=== PATIENT | female | born 1990 | race Caucasian/White ===

== ENCOUNTER 2017-02-12 15:04 | Emergency (ER) | payer OTHER ==
--- NOTE | 2017-02-12 15:13 | ED.PDOC ---
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 Timing/Duration: 4-6 hours, intermittent, resolved prior to arrival Severity: moderate Improving Factors: nothing Worsening Factors: nothing Associated Symptoms: other - see hpi Allergies/Adverse Reactions: Allergies Latex Allergy (Verified 09/28/14 12:40) Penicillins Allergy (Verified 09/28/14 12:40) Review of Systems - Review of Systems Constitutional: States: other - malaise/fatigue EENTM: States: no symptoms reported Respiratory: States: no symptoms reported Cardiology: States: see HPI Gastrointestinal/Abdominal: States: no symptoms reported Genitourinary: States: no symptoms reported Musculoskeletal: States: no symptoms reported Skin: States: no symptoms reported Neurological: States: see HPI Past Medical History (General) - Patient Medical History Hx Seizures: No Hx Stroke: No Hx Dementia: No Hx Asthma: Yes - No problems within last 2 years Hx Cardiac Disorders: No Hx Congestive Heart Failure: No Hx Pacemaker: No Hx Hypertension: No Hx Thyroid Disease: No Hx Diabetes: No Hx Gastroesophageal Reflux: No Hx Renal Disease: No Hx Cancer: No Hx of HIV: No Hx Hepatitis C: No Hx MRSA: No Hx Other PMH: Yes - thyroid Surgical History: other - umbilical hernia repair - Vaccination History Hx Influenza Vaccination: No Hx Pneumococcal Vaccination: No - Social History Hx Tobacco Use: No Hx Chewing Tobacco Use: No Hx Alcohol Use: No Hx Substance Use: No Hx Substance Use Treatment: No Hx Depression: No Hx Physical Abuse: No Hx Emotional Abuse: No Hx Suspected Abuse: No - Activities of Daily Living Patient Lives Alone: No - family - Female History Patient is a Female of Child Bearing Age (10 -59 yrs old): Yes Hx Last Menstrual Period: 02/01/17 Patient : No Family Medical History - Family History Mother Family History: No Known Hx Family Diabetes: Yes - multiple family members Hx Family;Other: HYPOTHYROIDISM-dad Physical Exam - Physical Exam General Appearance: Alert, Comfortable, No apparent distress Eye Exam: bilateral normal Ears, Nose, Throat: hearing grossly normal, normal ENT inspection, normal pharynx Neck: non-tender, full range of motion, supple, other - no carotid bruits Respiratory: lungs clear, normal breath sounds Cardiovascular/Chest: normal peripheral pulses, regular rate, rhythm, no murmur Peripheral Pulses: radial,right: 2+, radial,left: 2+ Gastrointestinal/Abdominal: normal bowel sounds, non tender, soft, no organomegaly Back Exam: normal inspection, no CVA tenderness, no vertebral tenderness Extremity: non-tender, no pedal edema, no calf tenderness Neurologic: teaching supervisor II-XII nml as tested, no motor/sensory deficits, alert, oriented x 3, other - negative pronator drift Skin Exam: normal color, warm/dry Lymphatic: no adenopathy Progress - Progress Progress: 02/12/17 17:10 Last Vital Signs Temp 97.1 F L 02/12/17 15:22 Pulse 71 02/12/17 15:22 Resp 16 02/12/17 15:22 BP 108/62 02/12/17 15:22 Pulse Ox 99 02/12/17 15:22 - Results/Orders Results/Orders: Laboratory Tests 02/12/17 02/12/17 02/12/17 15:47 15:47 15:47 WBC 10.0 RBC 4.97 Hgb 14.9 Hct 44.5 MCV 89.4 MCH 29.9 MCHC 33.5 RDW 12.3 Plt Count 311 MPV 8.1 Absolute Neuts (auto) 8.00 H Absolute Lymphs (auto) 1.10 Absolute Monos (auto) 0.60 Absolute Eos (auto) 0.10 Absolute Basos (auto) 0.00 Neutrophils % 80.6 H Lymphocytes % 11.4 L Monocytes % 6.3 Eosinophils % 1.3 Basophils % 0.4 Sodium 136 Potassium 3.8 Chloride 100 L Carbon Dioxide 29 Anion Gap 10.8 L BUN 13 Creatinine 0.58 L BUN/Creatinine Ratio 22.4 H Random Glucose 112 H Serum Osmolality 272.8 L Calcium 9.6 Total Bilirubin 0.9 AST 22 ALT 15 Alkaline Phosphatase 53 Troponin I < 0.02 Serum Total Protein 8.3 H Albumin 4.5 Globulin 3.8 H Albumin/Globulin Ratio 1.2 Serum HCG, Qual Urine Color Urine Appearance Urine pH Ur Specific [place] Urine Protein Urine Glucose (UA) Urine Ketones Urine Blood Urine Nitrite Urine Bilirubin Urine Urobilinogen Ur Leukocyte Esterase Urine RBC Urine WBC Ur Epithelial Cells Urine Bacteria Urine Opiates Screen Urine Barbiturates Ur Phencyclidine Scrn U Amphetamin/Meth Scrn U Benzodiazepines Scrn U Cocaine Metab Screen U Cannabinoids Screen 02/12/17 02/12/17 02/12/17 15:47 15:47 15:47 WBC RBC Hgb Hct MCV MCH MCHC RDW Plt Count MPV Absolute Neuts (auto) Absolute Lymphs (auto) Absolute Monos (auto) Absolute Eos (auto) Absolute Basos (auto) Neutrophils % Lymphocytes % Monocytes % Eosinophils % Basophils % Sodium Potassium Chloride Carbon Dioxide Anion Gap BUN Creatinine BUN/Creatinine Ratio Random Glucose Serum Osmolality Calcium Total Bilirubin AST ALT Alkaline Phosphatase Troponin I Serum Total Protein Albumin Globulin Albumin/Globulin Ratio Serum HCG, Qual Negative Urine Color Yellow Urine Appearance Sl cloudy Urine pH 8.0 H Ur Specific [place] 1.020 Urine Protein Negative Urine Glucose (UA) Negative Urine Ketones Negative Urine Blood Negative Urine Nitrite Negative Urine Bilirubin Negative Urine Urobilinogen 0.2 Ur Leukocyte Esterase Negative Urine RBC 0 Urine WBC 0 Ur Epithelial Cells 10-20 Urine Bacteria 0 Urine Opiates Screen Negative Urine Barbiturates Negative Ur Phencyclidine Scrn Negative U Amphetamin/Meth Scrn Negative U Benzodiazepines Scrn Negative U Cocaine Metab Screen Negative U Cannabinoids Screen Negative Laboratory Tests 02/12/17 02/12/17 02/12/17 15:47 15:47 15:47 WBC 10.0 RBC 4.97 Hgb 14.9 Hct 44.5 MCV 89.4 MCH 29.9 MCHC 33.5 RDW 12.3 Plt Count 311 MPV 8.1 Absolute Neuts (auto) 8.00 H Absolute Lymphs (auto) 1.10 Absolute Monos (auto) 0.60 Absolute Eos (auto) 0.10 Absolute Basos (auto) 0.00 Neutrophils % 80.6 H Lymphocytes % 11.4 L Monocytes % 6.3 Eosinophils % 1.3 Basophils % 0.4 Sodium 136 Potassium 3.8 Chloride 100 L Carbon Dioxide 29 Anion Gap 10.8 L BUN 13 Creatinine 0.58 L BUN/Creatinine Ratio 22.4 H Random Glucose 112 H Serum Osmolality 272.8 L Calcium 9.6 Total Bilirubin 0.9 AST 22 ALT 15 Alkaline Phosphatase 53 Troponin I < 0.02 Serum Total Protein 8.3 H Albumin 4.5 Globulin 3.8 H Albumin/Globulin Ratio 1.2 Serum HCG, Qual Urine Color Urine Appearance Urine pH Ur Specific [place] Urine Protein Urine Glucose (UA) Urine Ketones Urine Blood Urine Nitrite Urine Bilirubin Urine Urobilinogen Ur Leukocyte Esterase Urine RBC Urine WBC Ur Epithelial Cells Urine Bacteria Urine Opiates Screen Urine Barbiturates Ur Phencyclidine Scrn U Amphetamin/Meth Scrn U Benzodiazepines Scrn U Cocaine Metab Screen U Cannabinoids Screen 02/12/17 02/12/17 02/12/17 15:47 15:47 15:47 WBC RBC Hgb Hct MCV MCH MCHC RDW Plt Count MPV Absolute Neuts (auto) Absolute Lymphs (auto) Absolute Monos (auto) Absolute Eos (auto) Absolute Basos (auto) Neutrophils % Lymphocytes % Monocytes % Eosinophils % Basophils % Sodium Potassium Chloride Carbon Dioxide Anion Gap BUN Creatinine BUN/Creatinine Ratio Random Glucose Serum Osmolality Calcium Total Bilirubin AST ALT Alkaline Phosphatase Troponin I Serum Total Protein Albumin Globulin Albumin/Globulin Ratio Serum HCG, Qual Negative Urine Color Yellow Urine Appearance Sl cloudy Urine pH 8.0 H Ur Specific [place] 1.020 Urine Protein Negative Urine Glucose (UA) Negative Urine Ketones Negative Urine Blood Negative Urine Nitrite Negative Urine Bilirubin Negative Urine Urobilinogen 0.2 Ur Leukocyte Esterase Negative Urine RBC 0 Urine WBC 0 Ur Epithelial Cells 10-20 Urine Bacteria 0 Urine Opiates Screen Negative Urine Barbiturates Negative Ur Phencyclidine Scrn Negative U Amphetamin/Meth Scrn Negative U Benzodiazepines Scrn Negative U Cocaine Metab Screen Negative U Cannabinoids Screen Negative 02/12/17 17:20 WBC RBC Hgb Hct MCV MCH MCHC RDW Plt Count MPV Absolute Neuts (auto) Absolute Lymphs (auto) Absolute Monos (auto) Absolute Eos (auto) Absolute Basos (auto) Neutrophils % Lymphocytes % Monocytes % Eosinophils % Basophils % Sodium Potassium Chloride Carbon Dioxide Anion Gap BUN Creatinine BUN/Creatinine Ratio Random Glucose Serum Osmolality Calcium Total Bilirubin AST ALT Alkaline Phosphatase Troponin I < 0.02 Serum Total Protein Albumin Globulin Albumin/Globulin Ratio Serum HCG, Qual Urine Color Urine Appearance Urine pH Ur Specific [place] Urine Protein Urine Glucose (UA) Urine Ketones Urine Blood Urine Nitrite Urine Bilirubin Urine Urobilinogen Ur Leukocyte Esterase Urine RBC Urine WBC Ur Epithelial Cells Urine Bacteria Urine Opiates Screen Urine Barbiturates Ur Phencyclidine Scrn U Amphetamin/Meth Scrn U Benzodiazepines Scrn U Cocaine Metab Screen U Cannabinoids Screen - EKG/XRAY/CT EKG: Sinus, nonspecific ST T wave Chg Comments: heart rate-66 CT Ordered: Yes - no acute abnormalities Departure - Departure Clinical Impression: Malaise and fatigue, Numbness, Chest discomfort Time of Disposition: 17:43 Disposition: Discharge to Home or Self Care Condition: Good Departure Forms: ED Discharge - Pt. Copy, Patient Portal Self Enrollment Referrals: MIKE ROMANO [Primary Care Provider] - 1-2 Weeks Additional Instructions: RETURN TO EMERGENCY ROOM NEEDED ;FOLLOW UP WITH PRIMARY MD 02/15/2017 call for your appointment
[2017-02-12] MEDS ORDERED: LACTATED RINGERS 1,000 ML IVS ONE (15:27)
[2017-02-12 15:47] VITALS: TEMP 97.1
--- NOTE | 2017-02-12 17:26 | CT ---
EXAM DESCRIPTION: Head CLINICAL HISTORY: numbness COMPARISON: None available TECHNIQUE: Non contrast cranial CT.This exam was performed according to our departmental dose-optimization program, which includes automated exposure control, adjustment of the mA and/or kV according to patient size and/or use of iterative reconstruction technique. FINDINGS: Minimal mucosal sinus disease is observed in the right maxillary antrum. The remainder the paranasal sinuses imaged are clear. The orbits are normal in appearance. No mass lesions or mass effect are observed. The ventricles and cisternal spaces are within range of normal. No intracranial hemorrhage is observed. The mastoid sinus air cells are clear. IMPRESSION: Minimal mucosal sinus disease is observed in the right maxillary antrum. The exam is otherwise normal. Electronically signed by: Ronnie Robins MD 02/12/2017 5:24 PM [facility]
[2017-02-12 17:30] VITALS: BP 116/65; O2SAT 100
== END 2017-02-12 17:54 | disposition home or self-care (01) ==
LOC: ER 15:04
DX: R07.89 Other chest pain (principal); R20.0 Anesthesia of skin; R53.81 Other malaise; E03.9 Hypothyroidism, unspecified; Z88.0 Allergy status to penicillin; Z91.040 Latex allergy status
CPT/HCPCS: 36415; 70450; 80053; 80307; 81001; 84484; 84703; 85025; 93005; J7120

== ENCOUNTER → 2019-07-31 | Outpatient (CLI) | payer OTHER ==
--- NOTE | 2019-08-01 16:53 | US ---
EXAM DESCRIPTION: Breast,Left: Ultrasound. CLINICAL HISTORY: 29 yearsFemaleMASTODYNIA. Pain in the upper inner and lower inner quadrants of the left breast. Lump in the lower outer quadrant. No personal or family history of breast cancer. Menarche age 13. Childbirth age 22. Premenopausal. No HRT. COMPARISON: None. TECHNIQUE: Transcutaneous scanning of the left breast utilizing melgoza-scale and Doppler modes. Scanning performed by the executive director of nursing ; remote monitoring by Dr. Draper. FINDINGS: Scanning in the regions of interest left breast. Mostly fibroglandular tissues with minimal surrounding fatty replacement. No overlying skin changes. No dominant focal mass, no distinct cyst, no large calcifications. IMPRESSION: No suspicious or significant imaging findings. BI-RADS CATEGORY: 1 - NEGATIVE FOLLOW UP: The region of interest should be followed on clinical grounds and if noted to change in size or character, a directed follow-up ultrasound examination may be performed. Written communication explaining the findings and follow-up, will be mailed to the patient and referring health care provider. The FINDINGS and the FOLLOW-UP plan were reviewed in person with the patient after the examination. According to the [employer], yearly mammograms are recommended starting at age 40 and continuing as long as a woman is in good health. Any breast change noted on a breast self-exam should be reported promptly to the patient's healthcare provider. Breast MRI is recommended for women with an approximately 20-25% or greater lifetime risk of breast cancer, including women with a strong family history of breast or ovarian cancer and women who have been treated for Hodgkin's disease. Electronically signed by: Saeid Draper MD 08/01/2019 4:52 PM CDT
== END ==
LOC: MAMMO 14:57
PROVIDERS: ATTEND Nurse Practitioner Family
DX: N64.4 Mastodynia (principal)